=== PATIENT | female | born 1990 | race Caucasian/White ===

== ENCOUNTER 2016-06-21 20:51 | Emergency (ER) | payer OTHER ==
[~2016-06-21] VITALS: Ht 157.5 cm; Wt 72.0 kg
[2016-06-21 20:54] VITALS: BP 122/79; PULSE 70; RESP 16; O2SAT 100
--- NOTE | 2016-06-21 21:03 | ED.REPORT ---
HPI-General Illness Date of Service Jun 21, 2016 ED Provider: Axel Garcia DO 25 year old female presents to the ER accompanied by her boyfriend complaining of two weeks of painful rash. She reports rash under her arms, and across her back. Associated symptoms include subjective fever for the first few days of symptom onset. Patient denies any history of genital herpes. She was seen by her PCP who diagnosed her with shingles and started her on a course of gabapentin that has not provided any relief of symptoms. Nursing Notes Stated Complaint: RASH Chief Complaint: Skin Rash/Abscess Nursing Notes Reviewed: Yes Allergies: Coded Allergies: infliximab (Verified Allergy, Severe, Paralysis, 06/21/16) amoxicillin (Verified Allergy, Mild, Rash, 06/21/16) General Time Seen by MD: 21:03 Chief Complaint Rash Hx Obtained From: Patient Arrived By: Walk-in Sudden in Onset?: No Onset Occurred: More than a week ago... (2 weeks) Symptom Duration: Since onset Associated with: Reports: Fever (Subjective) Pertinent Negative: Pt denies other symptoms Similar Sx Previous: No Past Medical History Past Medical History Crohn's disease Smoking History Unknown if Ever Smoker Social History Other Social History: Good social support Ambulatory Status Independent Review of Systems Full Review of Systems Constitutional: Reports: Fever (subjective), Denies: Chills Ears / Nose / Throat: Denies: Sore throat Respiratory: Denies: Shortness of breath Cardiovascular: Denies: Chest pain GI: Denies: Abdominal pain, Diarrhea, Nausea, Vomiting Skin: Reports Rash Complete sys rev & neg: except as marked. Physical Exam Vital Signs Vital Signs Date Time Temp Pulse Resp B/P Pulse Ox O2 Delivery O2 Flow Rate FiO2 06/21/16 22:02 36.7 72 16 120/76 100 Room Air 06/21/16 20:54 36.6 70 16 122/79 100 Room Air Initial VS: Reviewed Head / Eyes: Atraumatic, Normocephalic, PERRL Neck: Supple, Non-tender, Full range of motion Respiratory: Breath sounds normal, Clear to auscultation, No respiratory distress Cardiovascular: Regular rate & rhythm, Heart sounds normal, Intact distal pulses Abdomen / GI: Soft, Non-tender, No guarding, No rebound, No distention Extremities: Vascular intact, Neuro intact, No swelling, No tenderness Neurologic: Alert, Oriented, Nonfocal Psychiatric: Mood/affect normal, Behavior normal, Normal thought content General/Constitutional: Awake, Alert, No acute distress, Well appearing, Well developed, Well hydrated, Well nourished, Cooperative Skin: Warm, Dry, Intact Color / Condition: Positive: Rash present Rash / Lesion Notes: Vesicles in a dermatomal pattern in the mid upper thoracic region, wrapping around to underneath the left breast. No evidence bacterial suprainfection. Re-Eval/Medical Decision Time of Eval: 21:12 Re-Evaluation/Progress Note: Discussed physical examination and plan to discharge. Patient is amenable to the plan. Return precautions given. All other questions addressed. Counseled Regarding: Diagnosis, Need for follow-up, When/why to return to ED Discharge & Departure Primary Impression: Herpes zoster Disposition: Home Discharge Condition All VS Reviewed: Yes Condition: Stable Patient Instructions: Herpes Zoster (DC) Additional Instructions: Valtrex three times daily for 7 days. Hilliard 1-2 every 6 hours as needed for pain. Do not drive, drink alcohol, or consume acetaminophen while taking Hilliard. Return to the ER immediately if you develop any ocular involvement, or ear involvement. Referrals: Zuri Preston PA-C (PCP) Scribe Attestation Portions of this note were transcribed by Hoang Fournier. I, Dr. Garcia, personally performed the history, physical exam and medical decision-making; I reviewed and confirmed the accuracy of the information in the transcribed note. Signed by: Curtis Blanco, 06/21/2016, 21:18 copies to: Zuri Preston PA-C, Christopher W MD Jun 21, 2016 21:03 HOANG FOURNIER Jun 21, 2016 21:12 Axel Garcia DO Jun 22, 2016 01:23
[2016-06-21] MEDS ORDERED: _HYDROcodone/APAP 5-325 mg Tablet PO PRN (21:15)
[2016-06-21 22:02] VITALS: BP 120/76; PULSE 72; RESP 16; O2SAT 100
== END 2016-06-21 22:03 | disposition home or self-care (01) ==
LOC: SED 20:51
DX: B02.9 Zoster without complications (principal); R50.9 Fever, unspecified; K50.90 Crohn's disease, unspecified, without complications; Z88.1 Allergy status to other antibiotic agents; Z88.8 Allergy status to other drugs, medicaments and biological substances